=== PATIENT | female | born 1995 | race Caucasian/White ===

== ENCOUNTER 2018-03-06 17:02 | Emergency (ER) | payer OTHER ==
[2018-03-06 18:18] LABS: SQUAMOUS EPITHIAL 6 /hpf (0-5); URINE BACTERIA FEW (<OCC); URINE BILIRUBIN NEGATIVE (NEGATIVE); URINE BLOOD 3+ (NEGATIVE); URINE CLARITY Hazy (Clear); URINE COLOR Yellow (YELLOW); URINE GLUCOSE (UA) NORMAL (Normal); URINE LEUKOCYTE ESTERASE 2+ Leu/uL (Negative); URINE PROTEIN 1+ mg/dL (NEGATIVE); URINE UROBILINOGEN NORMAL mg/dL (0.2-1.0)
[2018-03-06 18:19] LABS: HCG,QUALITATIVE URINE NEGATIVE (NEGATIVE)
--- NOTE | 2018-03-06 19:02 | C.PDOC ---
History Of Present Illness CC "lower abdominal pain" HPI: Patient is a 23 year old female who presents for lower abdominal pain described as severe low pain radiating to her low back that started at earlier today. She states it lasted for about 3-4 hours so she came concerned and came in to the ED. She states that her abdominal pain resolved an hour ago. She denies associated nausea, vomiting, diarrhea, constipation, dysuria, urinary complaints, fevers, chills, chest pain, shortness of breath, headache. She states she had similiar pain about 3 to 4 years ago when she was in [place], which resolved with an unknown injection. She denies prior history of kidney stones, urinary infections. She admits she had some spicy food earlier today. PMH: none PSH: none Home meds: none Allergies: NKDA Social hx: denies smoking, alcohol or drug use. About to start new job on Friday. LMP 02/23/18 Time Seen by Provider: 03/06/18 18:20 Chief Complaint (Nursing): Abdominal Pain Past Medical History Vital Signs: Last Vital Signs Temp 98.6 F 03/06/18 17:13 Pulse 88 03/06/18 17:13 Resp 18 03/06/18 17:13 BP 99/65 L 03/06/18 17:13 Pulse Ox 100 03/06/18 17:13 Family History: States: No Known Family Hx - Social History Hx Alcohol Use: Yes Hx Substance Use: No - Immunization History Hx Tetanus Toxoid Vaccination: Yes Hx Influenza Vaccination: No Hx Pneumococcal Vaccination: No Review Of Systems Constitutional: Negative for: Fever, Chills, Weakness, Malaise Cardiovascular: Negative for: Chest Pain, Palpitations, Edema Respiratory: Negative for: Cough, Shortness of Breath Gastrointestinal: Negative for: Nausea, Vomiting, Abdominal Pain Genitourinary: Negative for: Dysuria, Frequency Neurological: Negative for: Weakness, Numbness Psych: Negative for: Anxiety, Depression Physical Exam - Physical Exam Appears: Well, Non-toxic, No Acute Distress Skin: Warm, Dry Head: Atraumatic, Normacephalic Eye(s): bilateral: PERRL, EOMI Ear(s): Bilateral: Normal Nose: Normal Oral Mucosa: Moist Cardiovascular: Rhythm Regular, No Friction Rub, No Murmur, No JVD Respiratory: No Rales, No Rhonchi, No Stridor, No Wheezing, No Plerual Rub Gastrointestinal/Abdominal: Bowel Sounds, Soft, No Tenderness, No Organomegaly, No Mass, No Distention Back: No CVA Tenderness, No Vertebral Tenderness Extremity: No Tenderness, No Pedal Edema Pulses: Left Dorsalis Pedis: Normal, Right Dorsalis Pedis: Normal Neurological/Psych: Oriented x3, Normal Speech ED Course And Treatment O2 Sat by Pulse Oximetry: 100 Medical Decision Making Medical Decision Making: UA, urine culture, and HCG ordered. UA 2+ leuk esterase HCG neg Bactrim DS 1 tab PO given. Disposition - Disposition Disposition: HOME/ ROUTINE Disposition Time: 19:40 Condition: STABLE Additional Instructions: RADHA AVILES, thank you for letting us take care of you today. Your pr ovider was Joanie Bella MD and you were treated for ABD PAINS. The emergency medical care you received today was directed at your acute symptoms. If you were prescribed any medication, please fill it and take as directed. It may take several days for your symptoms to resolve. Return to the Emergency Department if your symptoms worsen, do not improve, or if you have any other problems. Please contact your doctor or call one of the physicians/clinics you have been referred to that are listed on the Patient Visit Information form that is included in your discharge packet. Bring any paperwork you were given at discharge with you along with any medications you are taking to your follow up visit. Our treatment cannot replace ongoing medical care by a primary care provider outside of the emergency department. Thank you for allowing the [facility] team to be part of your care today. If you had an X-Ray or CT scan: A Radiologist will review the ED reading if any change in treatment is needed we will contact you. If you had a blood, urine, or wound culture: It will take several days for the results, if any change in treatment is needed we will contact you. If you had an STI test: It will take 48 hours for the results. Please call after 1 week if you have not heard back. Prescriptions: Sulfamethoxazole/Trimethoprim [Bactrim DS 800 mg-160 mg] 1 tab PO BID #7 tab Instructions: Urinary Tract Infection, Adult (DC), Flank Pain (DC) Forms: Serious Business (Slovenian) - Clinical Impression Clinical Impression: Urinary tract infection
[2018-03-06] MEDS ORDERED: Tmp-Smz 800 mg-160 mg DS Tab PO STA (19:15)
[2018-03-06] MEDS ORDERED: Tmp-Smz 800 mg-160 mg DS Tab ONE (19:34)
[2018-03-06 19:36] VITALS: BP 112/80; PULSE 67; RESP 16; TEMP 98.5
[2018-03-06 20:54] VITALS: O2SAT 100
== END 2018-03-06 19:34 | disposition home or self-care (01) ==
LOC: C.ER 17:02
DX: N39.0 Urinary tract infection, site not specified (principal)